=== PATIENT | male | born 1995 | race Caucasian/White ===

== ENCOUNTER 2018-04-26 05:01 | Emergency (ER) | payer OTHER ==
--- NOTE | 2018-04-26 05:08 | EDPHY ---
H & P Time Seen by Provider: 04/26/18 05:05 HPI/ROS: Chief Complaint: Alcohol intoxication, agitation HPI: 23-year-old male being brought in by EMS after his friends called that he is becoming aggressive and belligerent after drinking alcohol. On arrival EMS found some was friends holding on the ground. He has abrasions around his face. The deny loss of consciousness. Admits to alcohol. Denies any other drug use. Patient is unable to provide any further history. ROS: Unobtainable secondary to the patient's intoxication PMH: Unknown Social History: No smoking, positive alcohol Family History: non-contributory Physical Exam: Gen: Awake, Alert, Airway Intact HEENT: Head: Patient has contusions and small abrasions on his face, primarily in the left side of his left cheek and left forehead Eyes: PERRLA, EOMI, patient has a small subconjunctival hemorrhage on the 9 :00 a.m. And 10:00 a.m. Positions of his left eye, no hyphema, Ears: No hemotympanum Nose: No epistaxis Mouth: Normal dentition, Airway patent Face: No deformity Neck: non-tender, no stepoff, Full ROM without pain Chest: non-tender, lungs CTA Heart: normal heart tones Abd: soft, non-tender, atraumatic Pelvis: non-tender, stable to AP and Lateral compression Back: atraumatic, no midline tenderness Ext: atramatic, full ROM Skin: no rash Neuro: CN II-XII intact, Strength 5/5 in all extremities, sensation intact in all extremities (Gagan Bean) Constitutional: Initial Vital Signs Temperature (C) 36.6 C 04/26/18 05:06 Heart Rate 94 04/26/18 05:06 Respiratory Rate 16 04/26/18 05:06 Blood Pressure 139/75 H 04/26/18 05:06 O2 Sat (%) 93 04/26/18 05:06 O2 Delivery Mode Nasal Cannula O2 (L/minute) 2 Allergies/Adverse Reactions: Unable to Assess Allergy (Unverified 04/26/18 05:06) Home Medications: Medication Instructions Recorded Unobtainable 04/26/18 Medical Decision Making - Diagnostics Imaging: Discussed imaging studies w/ hand cigar maker Radiologist - Diagnostics Imaging Results: CT scan of the head is negative per Dr. Hamilton. (Gagan Bean) ED Course/Re-evaluation: 23-year-old male with head abrasions and contusions and alcohol intoxication. CT scan of the head is negative. He will need to metabolize his alcohol before he is able to go home. 0700 patient signed out to Dr. Post pending ability to ambulate on his own. ( Gagan Bean) Other Provider: [id number]: Patient is walking through the department and is now clinically sober. He will be discharged to the [facility] in [facility] custody. (Michael Post) - Data Points Laboratory Results: Laboratory Results 04/26/18 05:02 04/26/18 05:02 04/26/18 04/26/18 05:02 05:02 WBC 7.53 10^3/uL 10^3/uL (3.80-9.50) RBC 6.16 10^6/uL 10^6/uL (4.40-6.38) Hgb 15.1 g/dL g/dL (13.7-17.5) Hct 47.8 % % (40.0-51.0) MCV 77.6 fL L fL (81.5-99.8) MCH 24.5 pg L pg (27.9-34.1) MCHC 31.6 g/dL L g/dL (32.4-36.7) RDW 13.5 % % (11.5-15.2) Plt Count 266 10^3/uL 10^3/uL (150-400) MPV 9.4 fL fL (8.7-11.7) Neut % (Auto) 34.8 % L % (39.3-74.2) Lymph % (Auto) 57.0 % H % (15.0-45.0) [place] % (Auto) 6.6 % % (4.5-13.0) Eos % (Auto) 0.8 % % (0.6-7.6) Baso % (Auto) 0.5 % % (0.3-1.7) Nucleat RBC Rel Count 0.0 % % (0.0-0.2) Absolute Neuts (auto) 2.62 10^3/uL 10^3/uL (1.70-6.50) Absolute Lymphs (auto) 4.29 10^3/uL H 10^3/uL (1.00-3.00) Absolute Monos (auto) 0.50 10^3/uL 10^3/uL (0.30-0.80) Absolute Eos (auto) 0.06 10^3/uL 10^3/uL (0.03-0.40) Absolute Basos (auto) 0.04 10^3/uL 10^3/uL (0.02-0.10) Absolute Nucleated RBC 0.00 10^3/uL 10^3/uL (0-0.01) Immature Gran % 0.3 % % (0.0-1.1) Immature Gran # 0.02 10^3/uL 10^3/uL (0.00-0.10) Sodium 146 mEq/L H mEq/L (135-145) Potassium 4.0 mEq/L mEq/L (3.3-5.0) Chloride 108 mEq/L mEq/L (97-110) Carbon Dioxide 21 mEq/l L mEq/l (22-31) Anion Gap 17 mEq/L H mEq/L (8-16) BUN 11 mg/dL mg/dL (7-23) Creatinine 1.0 mg/dL mg/dL (0.7-1.3) Estimated GFR > 60 Glucose 120 mg/dL H mg/dL (70-100) Calcium 8.9 mg/dL mg/dL (8.5-10.4) Ethyl Alcohol 375 mg/dL H mg/dL (0-10) Departure - Departure Disposition: Home, Routine, Self-Care Clinical Impression: Alcoholic intoxication, Abrasion, Subconjunctival hemorrhage Condition: Good Instructions: Subconjunctival Hemorrhage (ED), Alcohol Intoxication (ED), Contusion in Adults (ED), Abrasion (ED) Referrals: NONE *PRIMARY CARE P,. [Primary Care Provider] - As per Instructions
[2018-04-26 07:38] VITALS: BP 128/83
[2018-04-26 08:37] LABS: PLATELET COUNT 266 10^3/uL (150-400)
== END 2018-04-26 09:42 | disposition home or self-care (01) ==
DX: F10.920 Alcohol use, unspecified with intoxication, uncomplicated (principal); Y90.8 Blood alcohol level of 240 mg/100 ml or more; S00.81XA Abrasion of other part of head, initial encounter; H11.32 Conjunctival hemorrhage, left eye; X58.XXXA Exposure to other specified factors, initial encounter; Y99.8 Other external cause status
CPT/HCPCS: G0480